=== PATIENT | male | born 1960 | race Caucasian/White ===

== ENCOUNTER 2017-10-05 09:47 | Outpatient (CLI) | payer BC ==
--- NOTE | 2017-10-05 14:54 | XRAY Report ---
DATE OF SERVICE: 10/05/2017 THREE-VIEW LEFT FOOT: 10/05/2017 CLINICAL INDICATION: Pain for six months. FINDINGS: AP, lateral, and oblique views of the left foot demonstrate mild osteoarthritis of the first metatarsophalangeal joint and interphalangeal joints. There is no evidence of acute fracture or dislocation. No radiopaque foreign body is appreciated in the soft tissues. IMPRESSION: MILD OSTEOARTHRITIS. TD: 10/05/2017 15:53
== END 2017-10-05 09:48 | disposition home or self-care (01) ==
LOC: DI 09:47
PROVIDERS: ATTEND Podiatrist
DX: M19.072 Primary osteoarthritis, left ankle and foot (principal)

== ENCOUNTER 2021-07-01 08:00 | Outpatient (CLI) | payer BC ==
--- NOTE | 2021-07-01 14:12 | XRAY Report ---
PROCEDURE: Chest 2 View X-Ray INDICATIONS: COUGH TECHNIQUE: 2 view(s) of the chest. COMPARISON: None. FINDINGS: Surgical changes and devices: None. Lungs and pleura: No pleural effusions or pneumothorax. Subtle opacities are noted scattered in bila teral mid to lower lung zhou concerning for early developing infiltrates. Mediastinum: Mediastinal contours are normal. Heart size is normal. Bones and chest wall: No suspicious bony abnormalities. Soft tissues appear unremarkable. IMPRESSION: Finding is concerning for early developing bilateral lower lobe infiltrates. No pleural e ffusion or pneumothorax. Reviewed by: Robbi Savage MD on 07/01/2021 2:11 PM PDT Approved by: Robbi Savage MD on 07/01/2021 2:11 PM PDT Station ID: [id number]
== END 2021-07-01 23:59 | disposition home or self-care (01) ==
LOC: DI.S 08:00
PROVIDERS: ATTEND Physician Assistant Medical
DX: R05.9 Cough, unspecified (principal); Z20.822 Contact with and (suspected) exposure to COVID-19

== ENCOUNTER 2021-12-06 08:00 | Outpatient (CLI) | payer BC, MEDICAID ==
--- NOTE | 2021-12-06 16:06 | XRAY Report ---
PROCEDURE: Foot 3 View RT INDICATIONS: RIGHT FOOT PAIN TECHNIQUE: 3 views of the foot were acquired. COMPARISON: Left foot radiographs 10/05/2017. FINDINGS: Bones: No fractures or dislocations. Hallux valgus deformity with bunion formation. No suspicious vega [place] lesions. Soft tissues: No tibiotalar joint effusion. Achilles tendon appears normal. IMPRESSION: No fracture or dislocation. Hallux valgus deformity. Reviewed by: Rene Nova MD on 12/06/2021 4:05 PM PDT Approved by: Rene Nova MD on 12/06/2021 4:05 PM PDT Station ID: [id number]
== END 2021-12-06 23:59 | disposition home or self-care (01) ==
LOC: DI.S 08:00
PROVIDERS: ATTEND Physician Assistant
DX: M20.11 Hallux valgus (acquired), right foot (principal); M79.671 Pain in right foot

== ENCOUNTER 2022-01-21 14:45 | Outpatient (CLI) | payer MEDICAID ==
--- NOTE | 2022-01-21 16:56 | XRAY Report ---
PROCEDURE: Foot 3 View RT INDICATIONS: RIGHT FOOT PAIN TECHNIQUE: 3 views of the foot were acquired. COMPARISON: X-ray foot 12/06/2021 FINDINGS: Bones: No fractures or dislocations. No suspicious bony lesions. Hallux valgus deformity is presen t. Soft tissues: No tibiotalar joint effusion. Achilles tendon appears normal. IMPRESSION: Stable interval exam demonstrating no visualized fracture. If this remains of concern, CT or MRI is r ecommended. Reviewed by: Hilary Samaniego MD on 01/21/2022 4:54 PM PDT Approved by: Hilary Samaniego MD on 01/21/2022 4:54 PM PDT Station ID: [id number]
== END 2022-01-21 23:59 | disposition home or self-care (01) ==
LOC: DI.WOS 14:45
PROVIDERS: ATTEND Physician Assistant
DX: M79.671 Pain in right foot (principal)

== ENCOUNTER 2024-06-10 15:51 | Outpatient (CLI) | payer MEDICAID ==
--- NOTE | 2024-06-10 18:26 | MRI Report ---
Shoulder RT WO CLINICAL HISTORY: 63 years of age, Male, PAIN IN R SHOULDER. Comparison: No priors available Technique: Multiplanar, multisequence MRI of the right shoulder was performed without intravenous co ntrast. IV Contrast: Not Administered. Findings: Osseous acromial outlet: No significant changes of the acromial clavicular joint. Type III acromion. No os acromiale. Mild subacromial/subdeltoid bursitis. Rotator cuff muscles and tendons: There is full-thickness, full width tear of the supraspinatus at th e footprint, extending to a full-thickness, partial width tear of the superior infraspinatus. There i s additional high-grade articular sided tear of the inferior infraspinatus at the footprint. The gigi s minor is unremarkable. Moderate tendinosis of the subscapularis, with high-grade tear of the superi or fibers. Severe fatty atrophy of the supraspinatus and infraspinatus. No muscle edema. Labral and capsular structures: Diffuse labral degeneration. Superior labral tear. Biceps tendon and anchor: Mild tenosynovitis of the extra-articular biceps tendon. Partial thickness tear of the proximal extra-articular biceps tendon the intra-articular biceps tendon is not well-visu alized. Osseous and cartilaginous structures: Mild subchondral marrow edema and subchondral cystic changes at the lesser and the posterior aspect of greater tuberosity, reactive. No acute fracture. No focal cho ndral defect of the glenohumeral joint. Miscellaneous: No significant glenohumeral effusion. No intra-articular bodies. The remaining muscl es are normal in bulk without evidence of atrophy or edema. IMPRESSION: 1.No significant degenerative changes of the acromioclavicular joint. Type III acromion. 2.Full-thickness, fullwidth tear of the supraspinatus, extending to a full-thickness, partial width t ear of the superior infraspinatus. Additional high-grade tear of the inferior infraspinatus. 3.High-grade tear of the superior fibers of the subscapularis. 4.Severe fatty atrophy of the supraspinatus and infraspinatus. 5.Partial thickness tear of the proximal extra-articular biceps tendon. Reviewed by: Keturah Gardner MD on 06/10/2024 6:25 PM PDT Approved by: Keturah Gardner MD on 06/10/2024 6:25 PM PDT Station ID: [id number]
== END 2024-06-10 15:52 | disposition home or self-care (01) ==
LOC: DI 15:51
PROVIDERS: ATTEND Registered Nurse
DX: M19.011 Primary osteoarthritis, right shoulder (principal); M75.121 Complete rotator cuff tear or rupture of right shoulder, not specified as traumatic; S46.211A Strain of muscle, fascia and tendon of other parts of biceps, right arm, initial encounter